=== PATIENT | male | born 1945 | race Caucasian/White ===

== ENCOUNTER 2023-12-26 14:40 | Outpatient (AMB) | payer MEDICARE, OTHER, SELFPAY ==
--- NOTE | 2023-12-26 15:04 | HO.NEPHOV_ITS ---
HPI HPI Comments History of Present Illness Details I would the privilege of seeing Chris in consultation for chronic kidney disease. He is known to have vascular disease. He had undergone carotid endarterectomy. He has history of amaurosis fugax. He has history of hypertension and is well controlled on medications. He had undergone renal biopsy many years which showed glomerulosclerosis, tubular atrophy and interstitial fibrosis. He has anemia chronic disease and has been getting erythropoietin and as on a needed basis iron. He has worked as a [employer] in [employer]. His serum creatinine has been reasonably stable. He does not have any chest pain, shortness of breath, paroxysmal nocturnal dyspnea, orthopnea, pedal edema, macroscopic hematuria, orthostatic symptom. He does not take any nonsteroidal anti-inflammatories. He maintains good hydration. He has no uremic symptoms. He feels well. [facility] Medical History (Updated 01/12/24 @ 17:51 by Dave Smallwood MD) Chronic nonalcoholic liver disease Rosacea Impaired fasting glucose Primary hyperparathyroidism Mixed hyperlipidemia Essential (primary) hypertension Gastritis Adenomatous colon polyp History of malignant neoplasm of prostate Iron deficiency anemia Peripheral vascular disease Diverticulosis of colon Upper gastrointestinal bleeding Amaurosis fugax Chronic kidney disease, stage 4 (severe) Surgical History (Updated 12/19/23 @ 15:21 by Ida Scott MA) History of carotid endarterectomy Family History (Updated 12/26/23 @ 11:38 by Ida Scott MA) Father Diabetes mellitus Malignant tumor of prostate Peripheral vascular disease Carotid stenosis Brother Peripheral vascular disease Mother Alzheimers disease Social History (Updated 12/26/23 @ 15:10 by Ida Scott MA) Alcohol intake: current Patient Tobacco Use Status: Former Tobacco user Vital Signs 12/26/23 15:05 Height 5 ft 6 in Weight 140 lb 8 oz BMI 22.7 BP 142/60 H Blood Pressure Location Rt brachial Position Sitting Pulse 86 Pulse Source Pulse Oximeter Pulse Oximetry (%) 96 Oxygen Delivery Method Room Air Physical Exam Vital Signs: Last Vital Signs Pulse 86 12/26/23 15:05 BP 142/60 H 12/26/23 15:05 Pulse Ox 96 12/26/23 15:05 Oxygen Delivery Method Room Air 12/26/23 15:05 BMI result Body Mass Index 22.7 Const General: comfortable and no acute distress Orientation/consciousness: patient oriented x3 HEENT Head: Yes normocephalic Mouth: Normal oral and palatal mucosa present Eyes EOM: EOMs intact bilaterally Neck Neck: Yes supple Resp Auscultation: clear to auscultation bilaterally Cardio Jugular venous distension: no JVD Rate: regular rate GI Palpation (GI): Soft to palpation Auscultation: normal bowel sounds General: Yes no CVA tenderness Back/Spine/Pelvis Back: no CVA tenderness Skin General skin exam: no rashes or lesions noted Neuro General: patient oriented x3 and moves all extremities Extrem General: Yes no pedal edema Assessment & Plan Assessment & Plan (1) Hypertension: Code(s): I10 - Essential (primary) hypertension Qualifiers: Hypertension type: renovascular hypertension Qualified Code(s): I15.0 - Renovascular hypertension (2) Chronic kidney disease, stage 4 (severe): Code(s): N18.4 - Chronic kidney disease, stage 4 (severe) (3) Anemia in chronic kidney disease (CKD): Code(s): N18.9 - Chronic kidney disease, unspecified; D63.1 - Anemia in chronic kidney disease Qualifiers: Chronic kidney disease stage: stage 4 (severe) Qualified Code(s): N18.4 - Chronic kidney disease, stage 4 (severe); D63.1 - Anemia in chronic kidney disease Plan Chris has CKD stage 4. He had renal biopsy in the past. His serum creatinine has been stable. His blood pressure at goal. He is on angiotensin receptor karina and amlodipine. He does not consume excess sodium in the diet. He maintains good hydration and avoid nonsteroidal anti-inflammatories. He has anemia chronic disease and has history of getting erythropoietin. He is on vitamin-D replacements. He is known to have vascular disease. He had amaurosis fugax as well as carotid endarterectomy. He likely has renovascular disease as well. I ordered CKD follow-up investigations. I did not make any medication changes today. He is on statins. He is on PPI for a long time. He may need Doppler of his renal arteries in follow-up. He is on aspirin. He has history of microscopic hematuria and is due to see urologist. He may need a cystoscopy. Answered all his questions. Follow-up appointment given. Orders: Orders Vitamin D 25-OH Total 12/26/23 I10 - Essential (primary) hypertension, N18.4 - Chronic kidney disease, stage 4 (severe) Creatinine 12/26/23 I10 - Essential (primary) hypertension, N18.4 - Chronic kidney disease, stage 4 (severe) Calcium 12/26/23 I10 - Essential (primary) hypertension, N18.4 - Chronic kidney disease, stage 4 (severe) Phosphorus 12/26/23 I10 - Essential (primary) hypertension, N18.4 - Chronic kidney disease, stage 4 (severe) Parathyroid Hormone Intact 12/26/23 I10 - Essential (primary) hypertension, N18.4 - Chronic kidney disease, stage 4 (severe) Blood Urea Nitrogen 12/26/23 I10 - Essential (primary) hypertension, N18.4 - Chronic kidney disease, stage 4 (severe) Electrolytes 12/26/23 I10 - Essential (primary) hypertension, N18.4 - Chronic kidney disease, stage 4 (severe) Coding Level of Care Code New Pt Level 4 (74746) Diagnoses Renovascular hypertension I15.0 Hypertension type: renovascular hypertension Chronic kidney disease, stage 4 (severe) N18.4 Anemia in stage 4 chronic kidney disease N18.4; D63.1 Chronic kidney disease stage: stage 4 (severe) Results Reviewed Nephrology Results: No Data to Display
[2023-12-26 15:05] VITALS: BP 142/60; PULSE 86; O2SAT 96; BMI 22.7
== END 2023-12-26 16:03 | disposition home or self-care (01) ==
PROVIDERS: PCP Family Medicine; Referring Provider Family Medicine; Visit Provider Internal Medicine Nephrology
DX: I15.0 Renovascular hypertension (principal); N18.4 Chronic kidney disease, stage 4 (severe); D63.1 Anemia in chronic kidney disease
CPT/HCPCS: 99204

== ENCOUNTER → 2023-12-26 14:40 | Outpatient (BNVA) | payer MEDICARE, SELFPAY | PROVIDERS: PCP Family Medicine; Referring Provider Family Medicine; Visit Provider Internal Medicine Nephrology | DX: I15.0 Renovascular hypertension (principal); N18.4 Chronic kidney disease, stage 4 (severe); D63.1 Anemia in chronic kidney disease | CPT/HCPCS: 99202 ==